=== PATIENT | female | born 1965 | race Native Hawaiian/Other Pacific Islander ===

== ENCOUNTER → 2023-11-20 07:49 | Outpatient (CLI) | payer OTHER, SELFPAY ==
--- NOTE | 2023-11-20 07:51 | DI.US.S_ITS ---
PROCEDURE: US ABDOMEN LIMITED INDICATIONS: Elevated lft TECHNIQUE: Real-time focused scanning was performed of the abdomen, with image documentation. COMPARISON: None. FINDINGS: The liver demonstrates normal size. The liver demonstrates generalized moderately increased echogenicity. This decreases ultrasound sensitivity for detection of hepatic masses. Prior cholecystectomy. There is no biliary dilatation, the common bile duct measures 10 mm. No significant pancreatic abnormality is seen on these images. IMPRESSION: The liver demonstrates increased echogenicity. This finding is nonspecific, yet it is most commonly attributed to fatty infiltration. Prior cholecystectomy, without biliary dilatation for a post cholecystectomy patient. Dictated by: Kush Norman M.D. on 11/20/2023 at 10:01 Approved by: Kush Norman M.D. on 11/20/2023 at 10:01
== END ==
PROVIDERS: PCP Family Medicine; Referring Provider Family Medicine; Visit Provider Family Medicine
DX: R74.01 Elevation of levels of liver transaminase levels (principal); Z90.49 Acquired absence of other specified parts of digestive tract
CPT/HCPCS: 76705